=== PATIENT | male | born 1955 | race Caucasian/White ===

== ENCOUNTER 2020-06-11 23:04 | Inpatient (IN) | payer MEDICARE, OTHER ==
[~2020-06-11] VITALS: Ht 170.2 cm; Wt 88.2 kg
[2020-06-12 01:00] LABS: HEMOGLOBIN 13.8 gm/dl (14.0-17.5); RED BLOOD COUNT 4.38 M/UL (4.20-5.50); WHITE BLOOD COUNT 27.9 K/UL (4.5-11.0)
[2020-06-12 01:19] LABS: BUN/CREATININE RATIO 19 (0-10)
[2020-06-12 05:07] LABS: HEMOGLOBIN 13.2 gm/dl (14.0-17.5); RED BLOOD COUNT 4.35 M/UL (4.20-5.50); WHITE BLOOD COUNT 26.6 K/UL (4.5-11.0)
[2020-06-12 05:19] LABS: BUN/CREATININE RATIO 16 (0-10)
[2020-06-12] MEDS ORDERED: PRINIVIL20 MG PO (10:33)
[2020-06-13 10:01] LABS: HEMOGLOBIN 12.5 gm/dl (14.0-17.5)
[2020-06-13 10:02] LABS: RED BLOOD COUNT 3.88 M/UL (4.20-5.50); WHITE BLOOD COUNT 19.2 K/UL (4.5-11.0)
[2020-06-13 10:18] LABS: BUN/CREATININE RATIO 18 (0-10)
[2020-06-14 05:53] LABS: HEMOGLOBIN 12.7 gm/dl (14.0-17.5); RED BLOOD COUNT 3.96 M/UL (4.20-5.50)
[2020-06-14 05:56] LABS: WHITE BLOOD COUNT 14.3 K/UL (4.5-11.0)
[2020-06-14 06:16] LABS: BUN/CREATININE RATIO 17 (0-10)
[2020-06-14] MEDS ORDERED: PROBIOTIC1 EAC1 PO (09:39)
[2020-06-14] MEDS ORDERED: CLINDAMYCIN HC300 MG PO (09:39)
[2020-06-14] MEDS ORDERED: PERCOCET 10-321 EACH PO (12:48)
== END 2020-06-14 14:44 | disposition home or self-care (01) | DRG 872 ==
LOC: ER1 23:04 → M/S 06-12 04:59 → CDU 06-12 04:59 → ER1 06-12 04:59 → M/S 06-12 22:16
PROVIDERS: Internal Medicine; Physician Assistant; ADMIT Internal Medicine
DX: A41.9 Sepsis, unspecified organism (principal); L03.113 Cellulitis of right upper limb; I10 Essential (primary) hypertension; Z90.81 Acquired absence of spleen; S93.402A Sprain of unspecified ligament of left ankle, initial encounter; Z20.822 Contact with and (suspected) exposure to COVID-19
CPT/HCPCS: 36415; 73110; 73200; 73610; 80048; 80053; 80202; 83605; 84550; 85025; 85652; 86140; 87040; 96365; 96366; 96367; 96375; 96376; 99284; J1885; J2270; J2543; J3370; J7030; J7070; U0002